=== PATIENT | female | born 1950 | race Caucasian/White ===

== ENCOUNTER → 2021-04-12 | Outpatient (CLI) | payer MEDICARE, OTHER, SELFPAY ==
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
--- NOTE | 2021-04-12 11:30 | BRBX_PTH ---
PATIENT: NIELS SANCHEZ LOC: [facility] U#:[id number] AGE/SX: 71/F ROOM: RE04/12/[address]: Dr. Feliz Funk MD : 1950 BED: DIS: 04/12/2021 SPEC #: [id number] RECD: 04/12/21 11:59 STATUS: OPAL REBharath #: [id number] ALEKSANDR: 04/12/21 11:[address]: Feliz Funk DEPT: SURGICAL PATHOLOGY RECD BY: Cassie Olivo ENTERED: 04/12/21 13:18 SP TYPE: BREAST BX OTHR DR: Dr. Gómez Velásquez MD Tissues: Left breast, NOS Procedures: Surgery Specimen Level IV HEADER OPERATION: Left breast stereotactic biopsy PRE-OP DIAGNOSIS: Left breast 11 o?clock speculated density TISSUE SUBMITTED: Left breast core tissue ISCHEMIC TIME: 1 minute FIXATION TIME: 8 hours MICROSCOPIC DIAGNOSIS Left breast at 11 o?clock, stereotactic core biopsy: Focal intraductal hyperplasia without atypia. Nonproliferative fibrocystic change and associated microcalcifications. Involutional change. No evidence of malignancy. AM:ines 04/13/2021 MICROSCOPIC DESCRIPTION Slides are reviewed. GROSS DESCRIPTION Received is one container labeled with the patient's name and not further designated. The specimen consists of multiple irregular and elongated fragments of yellow-white soft tissue that in aggregate measure 5.5 x 3 x 0.2 cm. The specimen is totally submitted in two cassettes. / AM:ines 04/12/21 TC:5 CPT: 64420
--- NOTE | 2021-04-12 11:47 | PCM.OPRPT ---
Problems Associated Problem List Diagnoses (1) Abnormal mammogram of left breast: Report of Operation Date of Procedure: 04/12/21 Pre-Operative Diagnosis: Abnormal left mammogram with vague distortion upper inner Post-Operative Diagnosis: Same Surgery/Procedure Performed:: Stereotactic needle core biopsy left breast Description of Surgical Findings:: Timeout and informed consent was obtained. 71-year-old female was taken to the stereotactic unit placed prone the table. The left breast was placed in a cc view. The area of spiculated distortion identified. Stereotactic images were obtained. Target on head control clerk was selected replacing image 2. Digital information was obtained on a single target site. The breast was prepped with Betadine. 1% lidocaine was used as a local anesthetic. A total of 10 cc was used. A small stab incision was created. An 8 gauge mammotome needle was advanced to prefire depth. Prefire films were obtained. Subsequently the device was fired. 12 cores were obtained circumferentially. A small marking clip was left at 12 o'clock position. On fast view demonstrated good positioning. She was released from the device. Pressure was held for hemostasis. Steri-Strips Telfa OpSite dressing applied. Ice pack given. She was given activity and wound care instructions. The specimens had been immediately placed in formalin for analysis. Feliz Funk M.D., F.A.C.S. Surgeon: Feliz Funk Type of Anesthesia: Local
== END | disposition home or self-care (01) ==
LOC: BIRAD 10:47
PROVIDERS: PCP Internal Medicine; Referring Provider Surgery; Visit Provider Surgery
DX: N62 Hypertrophy of breast (principal); F41.9 Anxiety disorder, unspecified; I10 Essential (primary) hypertension; M19.90 Unspecified osteoarthritis, unspecified site; K21.9 Gastro-esophageal reflux disease without esophagitis; R92.8 Other abnormal and inconclusive findings on diagnostic imaging of breast
CPT/HCPCS: 19081; 88305; J7050

== ENCOUNTER 2024-06-02 07:30 | Outpatient (RCR) | payer MEDICARE, OTHER, SELFPAY ==
--- NOTE | 2024-04-09 16:30 | HP.OTEVAL ---
Patient's Visit Information Visit Information Visit Information: NIELS SANCHEZ is a 74 year old F, referred to Occupational Therapy by ZEINAB Casas, with a diagnosis of OA cmc. Date of Evaluation: 04/09/24 Occupational Therapist: BETH Meza/Miroslava, CHT Subjective Subjective: This 74 year old female was seen for OT eval with dx of left CMC OA. pt states she had multiple cortisone shot and last few was not helpful. pt decided to have sx. pt is right handed. pt had sx on 2023. pt lives alone. ADLs Comments: pt use of one hand at this time with all ADLs and IADLs. Pain left hand: Current Pain Intensity: 2 Pain Intensity Range: 4 ROM Wrist: right 55/50 left 30/30 CMC: right 20 left NT MP: right 60 left 10 IP: right 50 left 15 Strength Web Press Operator Assistant: right 30# left NT Strength Comments: will test at later date Quick DASH-Disab of Arm,Shoulder& Hand Quick DASH Score: 59.0900 Goals Goal:100% adherence to protocol: Yes Comment: cmc arthroplasty guidelines Goal:Daily scar massage when approriate: Yes Goal:ROM equal to unaffected hand: Yes Goal:Web Press Operator Assistant/Pinch strength at least 75% of unaffected hand: Yes Goal:No pain with affected hand use: Yes Goal:Full use of affected hand in daily activities including work: Yes Goal:Decrease scar hypersensitivity: Yes Other Goal: orthosis use: pt will demo IND donning and doffing of orthosis by end of 1st session Rehabilitation General Assessment: pt arrives 3 weeks and 6 days s/p from a left CMC arthroplasty. Pt arrives in need of custom orthosis to provide support and protection while newly repaired structures are healing. PT demo need for skilled OT services 1-2 x week for 8 weeks. Today therapist shar. custom orthosis, ed. in wrist short arch wrist ROM, tendon glide and IP ROM- therapist ed. pt to avoid any thumb hyper-ext of MPJ. pt demo understanding. therapist ed. pt on orthosis precautions and agreed to return to clinic for adj. pt demo understanding and agree to POC. Rehabilitation Potential: Excellent Anticipated Interventions Anticipated Interventions: A/AAROM/PROM, Strengthening, Scar Care, Triggerpoint Release, Desensitization, Orthoses, Joint Protection/Energy Conservation, Ergonomic Education, Education re assistive Equipment, Education re Diagnosis and Home Program Visit Plan Frequency: 1-2x /Week Duration: 2 Months TEXT: Thank you for the opportunity to evaluate your patient. For Medicare and Medicare HMO plans, please review the plan of care and approve it. It will need to be FAXED BACK to us at [phone] for Medicare purposes. Please let me know if there are questions or concerns regarding this plan of care. Physician Signature: Date:
--- NOTE | 2024-05-19 07:44 | HP.OTREVAL ---
Re-Evaluation Intro: ZEINAB Casas, It has been my pleasure to treat NIELS SANCHEZ over the last 7 visits for OA cmc. Please see the progress note below for an update on the occupational therapy plan of care! Subjective Subjective: pt arrives 9 weeks 4 days out from surgery doing well feels a little sore Objective Objective/Function: pt is doing well complains of soreness in L thumb region and wrist region at times. L MP joint with tendency to hyperextend needing moderate cues and increased focus on proper positioning during interventions L hand thumb MP 30 L hand thumb IP 40 wrist 45/45 L hand construction grip 20# L hand lateral pinch 1# L hand tripod pinch 1# Plan Plan Frequency: 1-2x /Week Duration: 2 Months Plan: progress in ROM per progression of healing and spittle protocal Goals Goals Patient Goals: Regain Mobility, Regain Strength, Decrease Pain and Use Hand/Wrist/Arm Normally Again Goal:100% adherence to protocol: Yes Goal:Daily scar massage when approriate: Yes Goal:ROM equal to unaffected hand: Yes Goal:Construction Controller/Pinch strength at least 75% of unaffected hand: Yes Goal:No pain with affected hand use: Yes Goal:Full use of affected hand in daily activities including work: Yes Goal:Decrease scar hypersensitivity: Yes Other Goal: orthosis use: pt will demo IND donning and doffing of orthosis by end of 1st session Anticipated Interventions Anticipated Interventions Anticipated Interventions: A/AAROM/PROM, Strengthening, Scar Care, Triggerpoint Release, Desensitization, Orthoses, Joint Protection/Energy Conservation, Ergonomic Education, Education re assistive Equipment, Education re Diagnosis and Home Program Re-Evaluation Ending Re-evaluation ending: Please do not hesitate to contact me at [phone] by phone or if you have questions or concerns regarding this new plan of care! Sincerely, Annalee Bartlett
--- NOTE | 2024-07-08 11:45 | HP.OT.NRP ---
Patient Information Patient Information: NIELS SANCHEZ was seen in my office for initial evaluation on 04/09/24. The following Plan of Care was established for this patient: POC Established Initial Frequency: 1-2x /Week Initial Duration: 2 Months Plan: progress in ROM per progression of healing and spittle protocal Anticipated Interventions Anticipated Interventions: A/AAROM/PROM, Strengthening, Scar Care, Triggerpoint Release, Desensitization, Orthoses, Joint Protection/Energy Conservation, Ergonomic Education, Education re assistive Equipment, Education re Diagnosis and Home Program Last Seen Last Seen: This patient was last seen in our office 06/02/24. Pertinent comments regarding their Occupational therapy will appear below: This 74 year old female seen for dx of L hand cmc OA s/p arthroplasty. pt progressed throughout POC in ROM as well as decreased pain increased functional use. discharge from OT services at this time due to lapse in time since services with no visits scheduled. At this point I will be discontinuing this patient from occupational therapy. I would be happy to see this patient again in the future if found appropriate by the physician. Thank you! Annalee Bartlett
== END 2024-06-02 19:00 | disposition home or self-care (01) ==
LOC: OT 07:30
PROVIDERS: PCP Internal Medicine; Referring Provider Physician Assistant Surgical; Visit Provider Physician Assistant Surgical
DX: M18.12 Unilateral primary osteoarthritis of first carpometacarpal joint, left hand (principal); M19.032 Primary osteoarthritis, left wrist
CPT/HCPCS: 97110; 97140; 97166; 97530; 97760

== ENCOUNTER → 2025-02-12 | Outpatient (CLI) | payer MEDICARE, OTHER, SELFPAY ==
--- OUTSIDE RECORDS SUMMARY | 2025-02-12 21:58 | XMS RPT_ITS | CCD ---
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 Dari Velásquez MD Primary Care Provider Evy Becker Attending Provider [phone] Evy Becker Referring Provider DARI VELÁSQUEZ Primary Care Unavailable DARI VELÁSQUEZ MD Primary Care Unavailable DARI VELÁSQUEZ MD Consulting Unavailable DARI VELÁSQUEZ MD Attending Unavailable DARI VELÁSQUEZ MD Admitting Unavailable PROVIDER, UNKNOWN Consulting Unavailable PROVIDER, UNKNOWN Consulting Unavailable PROVIDER, UNKNOWN Consulting Unavailable RALPH BLAND DO Primary Care Unavailable RALPH BLAND DO Attending Unavailable RALPH BLAND DO Admitting Unavailable DARI VELÁSQUEZ MD Consulting Unavailable MAJOR MOLINA MD Referring Unavailable PROVIDER, UNKNOWN Consulting Unavailable PROVIDER, UNKNOWN Consulting Unavailable PROVIDER, UNKNOWN Consulting Unavailable DARI VELÁSQUEZ MD Consulting Unavailable DARI VELÁSQUEZ MD Attending Unavailable DARI VELÁSQUEZ MD Primary Care Unavailable DARI VELÁSQUEZ MD Admitting Unavailable PROVIDER, UNKNOWN Consulting Unavailable PROVIDER, UNKNOWN Consulting Unavailable PROVIDER, UNKNOWN Consulting Unavailable DARI VELÁSQUEZ MD Consulting Unavailable DARI VELÁSQUEZ MD Attending Unavailable DARI VELÁSQUEZ MD Admitting Unavailable DARI VELÁSQUEZ MD Primary Care Unavailable PROVIDER, UNKNOWN Consulting Unavailable PROVIDER, UNKNOWN Consulting Unavailable PROVIDER, UNKNOWN Consulting Unavailable RIMA GOULD MD Primary Care Unavailable RIMA GOULD MD Attending Unavailable RIMA GOULD MD Admitting Unavailable DARI VELÁSQUEZ MD Consulting Unavailable PROVIDER, UNKNOWN Consulting Unavailable PROVIDER, UNKNOWN Consulting Unavailable PROVIDER, UNKNOWN Consulting Unavailable DARI VELÁSQUEZ MD Consulting Unavailable DARI VELÁSQUEZ MD Attending Unavailable DARI VELÁSQUEZ MD Admitting Unavailable DARI VELÁSQUEZ MD Primary Care Unavailable PROVIDER, UNKNOWN Consulting Unavailable PROVIDER, UNKNOWN Consulting Unavailable PROVIDER, UNKNOWN Consulting Unavailable Allergies Allergy Classification Reported Allergen(s) Allergy Type Date of Onset Reaction(s) Facility (2 sources) quinapril Drug Allergy 04-10-2021 Laryngospasms [facility] (2 sources) quinapril; Translations: [QUINAPRIL HCL] Drug Allergy 07-11-2009 Intolerance [facility] (1 source) quinapril Drug Allergy 04-10-2021 [facility] Repository Medications Current Medications Medication Drug Class(es) Dates Sig (Normalized) Sig (Original) ALPRAZolam 0.25 mg oral tablet (3 sources) Benzodiazepine Start: 05-09-2016 take 0.125 mg by mouth once daily as needed Alprazolam Active 0.125 MG PO DAILY NEEDED May 09, 2016 12:06pm Start: 05-09-2016 take 0.125 mg by jaylon th once daily as needed for anxiety Alprazolam 0.25 MG tablet Active 0.125 mg PO DAILY NEEDED as needed for Anxiety May 09, 2016 1:00am Start: 03-12-2016 ALPRAZolam (XA NAX) 0.5 mg tablet 03/12/2016 Active amLODIPine 10 mg oral tablet (3 sources) Dihydropyridine Calcium Channel Lexx Start: 07-11-2009 take 1 tablet by mouth once daily Amlodipine 10 mg tablet Active 10 mg PO DAILY April 10, 2021 1:00am aspirin 81 mg delayed release oral tablet (1 source) Platelet Aggregation Inhibitor, Nonsteroidal Anti-inflammatory Drug Start: 07-11-2009 aspirin(ECOTRIN LOW STRENGTH 81 MG TAB) Take one(1) tablet daily. 0 07/11/2009 Active doxycycline hyclate 100 mg oral tablet (1 source) Tetracycline-class Drug Start: 05-22-2024 End: 05-29-2024 take 1 tablet by mouth twice daily doxycycline (VIBRA-TABS) 100 mg tablet Take 1 tablet by mouth two times a day for 7 days. 14 tablet 05/22/2024 05/29/2024 Active Estrogens, Conjugated (JAIL) / medroxyPROGESTERone (1 source) Progestin, Estrogen Start: 07-11-2009 estrogen,con/m- progest acet(PREMPRO 0.625 MG-2.5 MG TAB) Take one(1) tablet daily. 0 07/11/2009 Active hydroCHLOROthiazide 25 mg / triamterene 37.5 mg oral capsule (3 sources) Potassium-sparing Diuretic, Thiazide Diuretic Start: 04-10-2021 take 1 capsule by mouth once daily Triamterene-Hyd rochlorothiazid Active 1 CAP PO DAILY April 10, 2021 1:54pm Start: 07-11-2009 Triamterene-Hy drochlorothiazid 37.5-25 mg capsule Active 1 NMA PO DAILY April 10, 2021 1:00am pantoprazole 40 mg delayed release oral tablet (3 sources) Proton Pump Inhibitor Start: 07-11-2009 take 1 tablet by mouth once daily Pantoprazole 40 mg tablet,delayed release (DR/EC) Active 40 mg PO DAILY April 10, 2021 1:00am pravastatin sodium 20 mg oral tablet (4 sources) HMG-CoA Reductase Inhibitor Start: 03-24-2024 take 1 tablet by mouth once pravastatin (PRAVACHOL) 20 mg tablet Take 1 tablet by mouth every afternoon. 03/24/2024 Active Start: 05-09-2016 take 20 mg by mouth once daily Pravastatin Active 20 MG PO DAILY May 09, 2016 12:01pm Start: 05-09-2016 Pravastatin 40 MG tablet Active 20 mg PO DAILY May 09, 2016 1:00am Start: 02-16-2016 pravastatin (P RAVACHOL) 40 mg tablet 02/16/2016 Active spironolactone 25 mg oral tablet (1 source) Aldosterone Antagonist Start: 03-24-2024 take 1 tablet by mouth once spironolactone (ALDACTONE) 25 mg tablet Take 1 tablet by mouth every afternoon. 03/24/2024 Active Completed/Discontinued Medications Medication Drug Class(es) Dates Sig (Normalized) Sig (Original) [id number] actuat albuterol 0.09 mg/actuat metered dose inhaler (2 sources) beta2-Adrenergic Agonist Start: 05-09-2016 End: 04-10-2021 take 1 puff(s) by inhalation every four hours as needed Albuterol Sulfate (Ventolin Hfa) 1 INHALER inhaler Discontinued 1 - 2 PUFF INHALATION EVERY 4 HOURS NEEDED May 09, 2016 12:38pm April 10, 2021 1:55pm Start: 05-09-2016 End: 04-10-2021 Albuterol Sulfate (Ventolin Hfa) 1 INHALER inhaler Discontinued 1 - 2 NMA INHALATION EVERY 4 HOURS NEEDED as needed for Wheezing May 09, 2016 1:00am April 10, 2021 1:55pm 12 hr guaiFENesin 1200 mg / pseudoephedrine hydrochloride 120 mg extended release oral tablet (2 sources) alpha-Adrenergic Agonist Start: 05-09-2016 End: 04-10-2021 Pseudoephedrine-Guaifenesin (Mucinex D Er 1,200-120 Mg Tab) 1 EACH tablet extended release 12 hr Discontinued 1 EACH PO TWICE A DAY May 09, 2016 12:38pm April 10, 2021 1:55pm hydroCHLOROthiazide 25 mg oral tablet (2 sources) Thiazide Diuretic Start: 05-09-2016 End: 04-10-2021 take 25 mg by mouth once daily Hydrochlorothiazide Discontinued 25 MG PO DAILY May 09, 2016 12:01pm April 10, 2021 1:45pm lisinopril 5 mg oral tablet (2 sources) Angiotensin Converting Enzyme Inhibitor Start: 05-09-2016 End: 04-10-2021 Lisinopril (Prinivil) 5 MG tablet Discontinued PO DAILY May 09, 2016 12:01pm April 10, 2021 1:54pm losartan potassium 25 mg oral tablet (3 sources) Angiotensin 2 Receptor Lexx Start: 05-09-2016 End: 04-10-2021 take 25 mg by mouth once daily Losartan Discontinued 25 MG PO DAILY May 09, 2016 12:01pm April 10, 2021 1:55pm Start: 07-11-2009 losartan potas sium(COZAAR 50 MG TAB) Take one(1) tablet daily. 0 07/11/2009 Active Problems Active Problems Problem Classification Problem Date Documented Da te Episodic/Chronic Acute bronchitis (2 sources) Viral bronchitis; Translations: [Acute bronchitis due to other specified organisms] 05-10-2016 Episodic Chronic kidney disease (1 source) Chronic kidney disease; Translations: [Chronic kidney disease, stage 3a] Onset: 06-15-2024 Disorders of lipid metabolism (4 sources) Hyperlipidemia, unspecified; Translations: [Hyperlipidemia, unspecified] Onset: 06-15-2024 Chronic Essential hypertension (3 sources) Essential (primary) hypertension; Translations: [Essential (primary) hypertension] Onset: 06-03-2024 Chronic Immunizations and screening for infectious disease (1 source) Contact with and (suspected) exposure to other communicable diseases; Translations: [Contact with or exposure to other communicable diseases] 05-22-2024 Episodic Mood disorders (1 source) Major depressive disorder, single episode, unspecified; Translations: [Major depressive disorder, single episode, unspecified] Onset: 01-06-2025 Chronic Other lower respiratory disease (1 source) Cough; Translations: [Acute cough] 05-22-2024 Episodic Other screening for suspected conditions (not mental disorders or infectious disease) (6 sources) Mammography abnormal; Translations: [Other abnormal and inconclusive findings on diagnostic imaging of breast] Onset: 02-20-2023 Episodic Past or Other Problems Problem Classification Problem Date Documented Da te Episodic/Chronic Abdominal pain (1 source) Epigastric pain; Translations: [Epigastric pain] Onset: 07-11-2009 07-11-2009 Episodic Diabetes mellitus without complication (1 source) Hyperglycemia, unspecified; Translations: [Hyperglycemia, unspecified] Onset: 06-03-2024 Episodic Gastritis and duodenitis (1 source) Acute gastritis; Translations: [Acute gastritis without bleeding] Onset: 07-26-2009 07-26-2009 Episodic Results Test Name Value Interpretation Reference Range Facil ity CBC (NO DIFF)on 01-06-2025 CBC panel Auto (Bld) Normal [facility] Comment on above: Result Comment: CBC( WITHOUT DIFFERENTIAL) Performed By: #### 2 [id number] #### [facility],[address] [place] [address] Erythrocyte distribution width (RBC) [Ratio] 14.1 % Normal 12.0 - 15.6 [facility] Comment on above: Performed By: #### 2 27117 #### [facility],[address] [place] [address] Hematocrit (Bld) [Volume fraction] 37.8 % Normal 34.0 - 46.0 [facility] Comment on above: Performed By: #### 2 46298 #### [facility],[address] [place] [address] Hemoglobin (Bld) [Mass/Vol] 13.0 g/dL Normal 12.0 - 16.0 [facility] Comment on above: Performed By: #### 2 09781 #### [facility],[address] [place] [address] MCH (RBC) [Entitic mass] 28 pg Normal 27 - 33 [facility] Comment on above: Performed By: #### 2 24243 #### [facility],[address] [place] [address] MCHC 34 X10 3 Normal 32 - 36 [facility] Comment on above: Performed By: #### 2 01664 #### [facility],[address] [place] [address] MCV (RBC) [Entitic vol] 80 fL Normal 80 - 99 [facility] Comment on above: Performed By: #### 2 33183 #### [facility],[address] [place] [address] PLATELET 298 x10EE3/UL Normal 150 - 450 [facility] Comment on above: Performed By: #### 2 08842 #### [facility],[address] [place] [address] Platelet mean volume (Bld) [Entitic vol] 8.2 fL Normal 6.6 - 10.5 [facility] Comment on above: Performed By: #### 2 97931 #### [place] [address] RBC 4.72 x 10EE6/UL Normal 4.10 - 5.30 [facility] Comment on above: Performed By: #### 2 88417 #### [facility],[address],[place] [address] WBC 6.3 x 10EE3/UL Normal 4.5 - 10.8 [facility] Comment on above: Performed By: #### 2 42493 #### [facility],[address] [place] [address] CMP with eGFRon 01-06-2025 AGE 74 years Normal [facility] Comment on above: Performed By: #### 2 79105 #### [facility],[address] [place] [address] Albumin [Mass/Vol] 3.8 g/dL Normal 3.4 - 5.0 [facility] Comment on above: Performed By: #### 2 37256 #### [facility],[address] [place] [address] Albumin/Globulin [Mass ratio] 1.2 {ratio} Normal 0.9 - 1.6 [facility] Comment on above: Performed By: #### 2 56852 #### [facility],[address] [place] [address] ALK PHOS 69 U/L Normal 46 - 116 [facility] Comment on above: Performed By: #### 2 39211 #### [facility],[address] [place] [address]140 ALT [Catalytic activity/Vol] 16 U/L Normal 16 - 63 [facility] Comment on above: Performed By: #### 2 95044 #### [facility],[address] [place] [address] Anion gap [Moles/Vol] 11 mmol/L Normal 10 - 20 [facility] Comment on above: Performed By: #### 2 09102 #### [facility],[address] [place] [address]95 AST [Catalytic activity/Vol] 14 U/L Normal 13 - 39 [facility] Comment on above: Performed By: #### 2 86040 #### [facility],[address] [place] [address]489 B/C RATIO 18 ratio Normal 0 - 30 [facility] Comment on above: Performed By: #### 2 01281 #### [facility],[address] [place], [place] [id number] Bilirubin [Mass/Vol] 0.5 mg/dL Normal 0.2 - 1.0 [facility] Comment on above: Performed By: #### 2 62809 #### [facility],[address] [place] [address] Calcium [Mass/Vol] 9.2 mg/dL Normal 8.5 - 10.1 [facility] Comment on above: Performed By: #### 2 03633 #### [facility],[address] [place] [address] Chloride [Moles/Vol] 105 mmol/L Normal 98 - 107 [facility] Comment on above: Performed By: #### 2 57525 #### [facility],[address] [place] [address] CMP with eGFR Normal [facility] Comment on above: Result Comment: COMP REHENSIVE METABOLIC PANEL Performed By: #### 2 84499 #### [facility],[address] [place] [address] CO2 [Moles/Vol] 28.8 mmol/L Normal 21.0 - 32.0 [facility] Comment on above: Performed By: #### 2 48259 #### [facility],[address] [place] [address] Creatinine [Mass/Vol] 1.02 mg/dL Normal 0.55 - 1.02 [facility] Comment on above: Performed By: #### 2 58402 #### [facility],[address] [place] [address] eGFR 53 ML/MINUTE Low 60 - 999 [facility] Comment on above: Performed By: #### 2 95864 #### [facility],[address] [place], [place] [address] GFR/1.73 sq M.predicted among non-blacks MDRD (S/P/Bld) [Vol rate/Area] mL/min/{1.73_m2} Normal 60 - 999 [facility] Comment on above: Result Comment: ACCO RDING TO THE NATIONAL KIDNEY DISEASE EDUCATION PROGRAM(NKDE), A NORMAL eGFR IS A VALUE GREATER THAN OR EQUAL TO 60 ML/MIN/1.73 SQ METERS. CHRONIC KIDNEY DISEASE: <60mL/MIN/1.73 SQ METERS KIDNEY FAILURE: <15mL/MIN/1.73 SQ METERS THIS TEST SHOULD ONLY BE USED FOR PATIENTS 18 YEARS OF AGE AND OLDER. Performed By: #### 2 90366 #### [address] [address] Globulin (S) [Mass/Vol] 3.1 g/dL Normal 1.5 - 3.8 [facility] Comment on above: Performed By: #### 2 04072 #### [address] [address] Glucose [Mass/Vol] 89 mg/dL Normal 74 - 106 [facility] Comment on above: Performed By: #### 2 78389 #### [address] [address] Potassium [Moles/Vol] 3.8 mmol/L Normal 3.5 - 5.1 [facility] Comment on above: Performed By: #### 2 00630 #### [address] [address] Protein [Mass/Vol] 6.9 g/dL Normal 6.4 - 8.2 [facility] Comment on above: Performed By: #### 2 29838 #### [address] [address] Sodium [Moles/Vol] 141 mmol/L Normal 136 - 145 [facility] Comment on above: Performed By: #### 2 29747 #### [address] [address] Urea nitrogen [Mass/Vol] 18 mg/dL Normal 7 - 18 [facility] Comment on above: Performed By: #### 2 22054 #### [facility],[address] [place] [address] LIPID PROFILEon 01-06-2025 Cholesterol [Mass/Vol] 225 mg/dL Normal 0 - 240 [facility] Comment on above: Performed By: #### 2 08316 #### [facility],[address] [place] [address] Cholesterol in HDL [Mass/Vol] 46 mg/dL Normal 40 - 60 [facility] Comment on above: Performed By: #### 2 63041 #### [facility],[address] [place] [address] Cholesterol in LDL [Mass/Vol] 134 mg/dL High 0 - 129 [facility] Comment on above: Performed By: #### 2 76431 #### [facility],[address] [place], [place] [address] Cholesterol.total/ Cholesterol in HDL [Mass ratio] 4.9 {ratio} Normal 0.0 - 5.0 [facility] Comment on above: Performed By: #### 2 55747 #### [facility],[address] [place] [address] Lipid 1996 panel Normal [facility] Comment on above: Result Comment: LIPI D PROFILE Performed By: #### 2 42133 #### [facility],[address] [place] [address] Triglyceride [Mass/Vol] 227 mg/dL High 0 - 150 [facility] Comment on above: Performed By: #### 2 24743 #### [facility],[address] [place] [address] TSHon 01-06-2025 TSH Qn 1.94 m[IU]/L Normal 0.35 - 3.74 [facility] Comment on above: Performed By: #### 2 20664 #### [facility],[address] [place] [address]26 25-HYDROXY D2+D3 [CCL]on 25-Hydroxy D Total 68.6 ng/mL Normal 30.0-100.0 [facility] Comment on above: Result Comment: Defi cient: <20.1 ng/mL Insufficient: 20.1 - 29.9 ng/mL Sufficient: 30.0 - 100.0 ng/mL Toxic: >150.0 ng/mL Reference: [place]wat STOUT, N Engl J Med (2007)[id number] This test was developed and its performance characteristics determined by the [facility] [place] at the [facility]. The U.S. Food and Drug Administration has not approved or cleared this test, however, FDA clearance or approval is not currently [place] [address] Abraham Amanda III, M.D. [id number] Performed By: #### 2 25014 #### [facility],[address] [place], [place] [address] 25-Hydroxy D2 <5.0 Normal [facility] Comment on above: Performed By: #### 2 23423 #### [facility],[address] [place] [address]676 25-Hydroxy D3 68.6 ng/mL Normal [facility] Comment on above: Performed By: #### 2 59981 #### [address] [address] 25-HYDROXY D2+D3on 25-hydroxyvitamin D3 [Mass/Vol] 68.6 ng/mL Normal 30.0-100.0 [facility] Comment on above: Order Comment: Speci men Type: BLOOD SPECIMEN Ordering Facility: [facility] Address: [address] [place] [address] Result Comment: Defi cient: <20.1 ng/mL Insufficient: 20.1 - 29.9 ng/mL Sufficient: 30.0 - 100.0 ng/mL Toxic: >150.0 ng/mL Reference: [place] STOUT, N Engl J Med (2007)[id number] This test was developed and its performance characteristics determined by the [facility] [place] at the [facility]. The U.S. Food and Drug Administration has not approved or cleared this test, however, FDA clearance or approval is not currently required for clinical use. Performed By: #### D 2D3 #### [facility] CLIA [id number] [address] [place] Vitamin D2 [Mass/Vol] <5.0 Normal [facility] Comment on above: Order Comment: Speci [facility] Type: BLOOD SPECIMEN Ordering Facility: [facility] Address: [address] [place] [address] Performed By: #### D 2D3 #### [facility] CLIA [id number] [address] [place] [address] [place] Vitamin D3 [Mass/Vol] 68.6 ng/mL Normal [facility] Comment on above: Order Comment: Speci jasmine Type: BLOOD SPECIMEN Ordering Facility: [facility] Address: [address] [place], [place] [id number] Performed By: #### D 2D3 #### [facility] CLIA [id number] [address] [place], [place] [id number] [place] HEPATIC FUNCTION PANELon Albumin [Mass/Vol] 3.8 g/dL Normal 3.4 - 5.0 [facility] Comment on above: Performed By: #### 2 44561 #### [facility],[address] [place] [address] [place] [address] ALK PHOS 68 U/L Normal 46 - 116 [facility] Comment on above: Performed By: #### 2 65033 #### [facility],[address] [place] [address] [place] [address] ALT [Catalytic activity/Vol] 14 U/L Low 16 - 63 [facility] Comment on above: Performed By: #### 2 51419 #### [facility],[address] [place], [place] [address] AST [Catalytic activity/Vol] 14 U/L Normal 13 - 39 [facility] Comment on above: Performed By: #### 2 23306 #### [facility],[address] [place] [address] Bilirubin [Mass/Vol] 0.4 mg/dL Normal 0.2 - 1.0 [facility] Comment on above: Performed By: #### 2 43619 #### [facility],[address] [place], [place] [address] Bilirubin.direct [Mass/Vol] 0.1 mg/dL Normal 0.0 - 0.2 [facility] Comment on above: Performed By: #### 2 20414 #### [facility],[address] [place], [place] [address] Hepatic function 2000 panel Normal [facility] Comment on above: Result Comment: HEPA TIC FUNCTION PROFILE Performed By: #### 2 49546 #### [facility],[address] [place], [place] [address] Protein [Mass/Vol] 7.4 g/dL Normal 6.4 - 8.2 [facility] Comment on above: Performed By: #### 2 69118 #### [facility],[address] [place], [place] [address] LIPID PROFILEon 09-03-2024 Cholesterol [Mass/Vol] 217 mg/dL Normal 0 - 240 [facility] Comment on above: Performed By: #### 2 54464 #### [facility],[address] [place] [address] Cholesterol in HDL [Mass/Vol] 50 mg/dL Normal 40 - 60 [facility] Comment on above: Performed By: #### 2 47590 #### [facility],[address] [place] [address] Cholesterol in LDL [Mass/Vol] 134 mg/dL High 0 - 129 [facility] Comment on above: Performed By: #### 2 39240 #### [facility],[address] [place] [address] Cholesterol.total/ Cholesterol in HDL [Mass ratio] 4.3 {ratio} Normal 0.0 - 5.0 [facility] Comment on above: Performed By: #### 2 90357 #### [facility],[address] [place] [address] Lipid 1996 panel Normal [facility] Comment on above: Result Comment: LIPI D PROFILE Performed By: #### 2 64182 #### [facility],[address] [place] [address] Triglyceride [Mass/Vol] 163 mg/dL High 0 - 150 [facility] Comment on above: Performed By: #### 2 21392 #### [facility],[address] [place] [address] 3D MAMM BILAT SCREENon 07-28 3D MAMM BILAT SCREEN [place] [address] Patient: HOLLY SANCHEZ Phone#: : [phone] Age: 74 Gender: F Pt. Type: Out Account: [id number] Location: Ordering: [facility] Exam Date: 07/28/2024/10:06 Family Phys: Charge Code: [id number] Physician: Conway Order #: [id number] Dose#: PROCEDURE: BILATERAL SCREENING BREAST TOMOSYNTHESIS MAMMOGRAM WITH CAD COMPARISON: [facility], 3D LT SPOT VIEWS, 04/05/2021, 9:07. [facility], 3D BILAT SCREEN, 08/07/2022, 11:12. INDICATIONS: Screening. BREAST COMPOSITION: Heterogeneously dense, which may obscure small masses. FINDINGS: DIAGNOSTIC CATEGORY 1--NEGATIVE NO CHANGE FROM COMPARISON ASSESSMENT. RIGHT BREAST: No significant suspicious finding. No significant change has occurred. LEFT BREAST: No significant suspicious finding. Surgical marker is present the site of prior biopsy. Scattered calcifications are present. RECOMMENDATIONS: ROUTINE MAMMOGRAM AND CLINICAL EVALUATION IN 12 MONTHS. PLEASE NOTE: A NORMAL MAMMOGRAM DOES NOT EXCLUDE THE POSSIBILITY OF BREAST CANCER. A CLINICALLY SUSPICIOUS PALPABLE LUMP SHOULD BE BIOPSIED. THIS FACILITY UTILIZES A REMINDER SYSTEM TO ENSURE THAT ALL PATIENTS RECEIVE REMINDER LETTERS FOR APPOINTMENTS. THIS INCLUDES REMINDERS FOR ROUTINE MAMMOGRAMS, DIAGNOSITC MAMMOGRAMS, OR OTHER BREAST IMAGING INTERVENTIONS WHEN APPROPRIATE. THIS PATIENT WILL BE PLACED IN THE APPROPRIATE REMINDER SYSTEM. Dictated by: Rosalva Burnett MD on 07/28/2024 at 11:32 Approved by: Rosalva Burnett MD on 07/28/2024 at 11:37 Normal [facility] BONE DENSITY STUDYon 025 Bone density scan [place] [address] Patient: HOLLY SANCHEZ Phone#: : 1950 Age: 74 Gender: F Pt. Type: Out Account: [id number] Location: Ordering: DARI VELÁSQUEZ Exam Date: 07/28/2024/10:40 Family Phys: Charge Code: [id number] Physician: Conway Order #: [id number] Dose#: PROCEDURE: BONE DENSITY STUDY TECHNIQUE: Lumbar vertebral and proximal femoral dual-energy X-ray absorptiometry (DXA) was performed on a central [employer] device. COMPARISON: [facility], BONE DENSITY STUDY, 04/06/2022, 7:41. SPINE ANALYSIS RESULTS: Average lumbar bone mineral density (BMD) (g/cm2): 0.915 Lumbar T-score (standard deviation relative to young adult mean BMD): -2.2 Lumbar Z-score (standard deviation relative to age matched control group): -0.1 Change since prior spine examination: Bone loss greater than expected for physiologic change. Consider further clinical evaluation. SPINE CLASSIFICATION: Osteopenia (T-score -1.0 to -2.5). HIP ANALYSIS RESULTS: Left femoral bone mineral density (BMD) (g/cm2): 0. 795 Right femoral bone mineral density (BMD) (g/cm2): 0.819 Femur T-score (standard deviation relative to young adult mean BMD): -1.6 Femur Z-score (standard deviation relative to age matched control group): 0.4 Change since prior hip examination: Bone loss greater than expected for physiologic change. Consider further clinical evaluation. HIP CLASSIFICATION (World Health Organization): Osteopenia (T-score -1.0 to -2.5). Note: The 2007 International Society for Clinical Densitometry (ISCD) Official Positions state that osteoporosis in emily-menopausal and post-menopausal women and in men age 50 and older may be diagnosed if the T-score of the lumbar spine, total hip, or femoral neck is -2.5 or less. Hip BMD is reported from the femoral neck or total proximal femur whichever is lowest. In pre-menopausal women and in men younger than age 50, T-scores may be used but Z-scores are preferred. In this patient group, a Z-score of -2.0 or lower is defined as "below the expected range for age." FRAX is a computer-based algorithm which uses easily obtained clinical risk factors combined with femoral neck BMD or T-score to estimate an individual 10-year fracture probability. FRAX with BMD predicts fracture risk better than clinical risk factors or BMD alone. It is not appropriate to use FRAX to monitor treatment response. Continued Report - Page 2 of 2 Patient: HOLLY SANCHEZ Phone#: : 1950 Age: 74 Gender: F Pt. Type: Out Account: [id number] Location: Ordering: [facility] Exam Date: 07/28/2024/10:40 Family Phys: Charge Code: [id number] Physician: Conway Order #: [id number] Dose#: ADDITIONAL FINDINGS: No significant additional findings. Ten year probability of major osteoporotic fracture 20.8%. Ten year probability of hip fracture 5.5%. Dictated by: Rosalva Burnett MD on 07/28/2024 at 14:09 Approved by: Rosalva Burnett MD on 07/28/2024 at 14:11 [facility] OT D/C of Non Returning Pton 07-08-2024 OT D/C of Non Returning Pt [facility] Occupational Therapy Health[address] [place] [address] / REHABILITATION SERVICES DISCHARGE SUMMARY MR#: [id number] Acct: [id number] Name: HOLLY SANCHEZ Rep #: [id number] : 1950 74 From: Annalee Bartlett Referring Dr.: ZEINAB Casas Status: REG RCR Eval Date: Discharge Date: Patient Information Patient Information: HOLLY SANCHEZ was seen in my office for initial evaluation on 04/09/24. The following Plan of Care was established for this patient: POC Established Initial Frequency: 1-2x /Week Initial Duration: 2 Months Plan: progress in ROM per progression of healing and spittle protocal Anticipated Interventions Anticipated Interventions: A/AAROM/PROM, Strengthening, Scar Care, Triggerpoint Release, Desensitization, Orthoses, Joint Protection/Energy Conservation, Ergonomic Education, Education re assistive Equipment, Education re Diagnosis and Home Program Last Seen Last Seen: This patient was last seen in our office 06/02/24. Pertinent comments regarding their Occupational therapy will appear below: This 74 year old female seen for dx of L hand cmc OA s/p arthroplasty. pt progressed throughout POC in ROM as well as decreased pain increased functional use. discharge from OT services at this time due to lapse in time since services with no visits scheduled. At this point I will be discontinuing this patient from occupational therapy. I would be happy to see this patient again in the future if found appropriate by the physician. Thank you! Annalee Bartlett 07/08/24 1145 CC: Dr. Dari Velásquez MD; ZEINAB Casas CK Signed Normal [facility] LIPID PROFILEon 06-15-2024 Cholesterol [Mass/Vol] 248 mg/dL High 0 - 240 [facility] Comment on above: Performed By: #### 2 86454 #### [facility],[address] [place] [address] 88405 Cholesterol in HDL [Mass/Vol] 66 mg/dL High 40 - 60 [facility] Comment on above: Performed By: #### 2 20765 #### [facility],[address] [place] [address] 22227 Cholesterol in LDL [Mass/Vol] 141 mg/dL High 0 - 129 [facility] Comment on above: Performed By: #### 2 30038 #### [facility],[address] [place] [address] 63722 Cholesterol.total/ Cholesterol in HDL [Mass ratio] 3.8 {ratio} Normal 0.0 - 5.0 [facility] Comment on above: Performed By: #### 2 61799 #### [facility],[address] [place] [address] 71369 Lipid 1996 panel Normal [facility] Comment on above: Result Comment: LIPI D PROFILE Performed By: #### 2 52080 #### [facility],[address] [place] [address] 65869 Triglyceride [Mass/Vol] 207 mg/dL High 0 - 150 [facility] Comment on above: Performed By: #### 2 21253 #### [facility],[address] [place] [address] 25262 TSHon 06-15-2024 TSH Qn 0.69 m[IU]/L Normal 0.35 - 3.74 [facility] Comment on above: Performed By: #### 2 82061 #### [facility],[address] [place] [address] 89027 VITAMIN D, 25 HYDROXYon 05-24 VitD 94.30 ng/mL Normal 30.00 - 100 [facility] Comment on above: Result Comment: 25-O HD3 indicates both endogenous production and supplementation. 25-OHD2 is an indicator of exogenous sources, such as diet or supplementation. Therapy is based on measurement of Total 25-OHD, with levels <20 ng/mL indicative of Vitamin D deficiency, while levels between 20 ng/mL and 30 ng/mL suggest insufficiency. Optimal levels are >=30ng/mL. Vitamin D, 25-OH D3 Not Established Vitamin D, 25-OH D2 Not Established Performed By: #### 2 45799 #### [facility],[address] [place] [address] 17265 CBC + DIFFon 06-03-2024 Baso # 0.02 x10EE3/UL Normal 0.00 - 0.10 [facility] Comment on above: Performed By: #### 2 32001 #### [facility],[address] [place] [address] Basophils/100 WBC (Bld) 0.3 % Normal 0.0 - 2.0 [facility] Comment on above: Performed By: #### 2 10561 #### [facility],[address] [place] [address] CBC + DIFF Normal [facility] Comment on above: Result Comment: CBC- COMPLETE BLOOD COUNT Performed By: #### 2 72926 #### [place] [address] EO # 0.22 x10EE3/UL Normal 0.00 - 0.50 [facility] Comment on above: Performed By: #### 2 10746 #### [place] [address] Eosinophils/100 WBC (Bld) 3.7 % Normal 0.0 - 7.0 [facility] Comment on above: Performed By: #### 2 62458 #### [place] [address] Erythrocyte distribution width (RBC) [Ratio] 14.4 % Normal 12.0 - 15.6 [facility] Comment on above: Performed By: #### 2 85462 #### [facility],[address] [place] [address] Hematocrit (Bld) [Volume fraction] 38.4 % Normal 34.0 - 46.0 [facility] Comment on above: Performed By: #### 2 60845 #### [place] [address] Hemoglobin (Bld) [Mass/Vol] 12.8 g/dL Normal 12.0 - 16.0 [facility] Comment on above: Performed By: #### 2 72240 #### [facility] [place] [address] Lymph # 2.36 x10EE3/UL Normal 0.80 - 2.80 [facility] Comment on above: Performed By: #### 2 79922 #### [facility],[address] [place] [address] Lymphocytes/100 WBC (Bld) 40.0 % Normal 20.0 - 45.0 [facility] Comment on above: Performed By: #### 2 74866 #### [facility],[address] [place] [address] MANUAL DIFF N/A Normal [facility] Comment on above: Performed By: #### 2 42719 #### [facility],[address] [place] [address] MCH (RBC) [Entitic mass] 27 pg Normal 27 - 33 [facility] Comment on above: Performed By: #### 2 63907 #### [facility],[address] [place] [address] MCHC 33 X10 3 Normal 32 - 36 [facility] Comment on above: Performed By: #### 2 82340 #### [facility],[address] [place], [place] [address] MCV (RBC) [Entitic vol] 80 fL Normal 80 - 99 [facility] Comment on above: Performed By: #### 2 30990 #### [facility],[address] [place] [address] [place] # 0.58 x10EE3/UL Normal 0.20 - 1.00 [facility] Comment on above: Performed By: #### 2 21264 #### [facility],[address] [place], [place] [address] MONOS % 9.9 % Normal 0.0 - 10.0 [facility] Comment on above: Performed By: #### 2 64340 #### [facility],[address] [place], [place] [address] Morphology Viktor (Bld) [Interp] N/A Normal [facility] Comment on above: Performed By: #### 2 95069 #### [facility],[address] [place], [place] [address] Neut # 2.72 x10EE3/UL Normal 1.50 - 7.10 [facility] Comment on above: Performed By: #### 2 31733 #### [facility],[address] [place] [address] Neutrophils/100 WBC (Bld) 46.1 % Normal 46.0 - 76.0 [facility] Comment on above: Performed By: #### 2 08253 #### [facility],[address] [place] [address] PLATELET 313 x10EE3/UL Normal 150 - 450 [facility] Comment on above: Performed By: #### 2 15187 #### [facility],[address] [place] [address] Platelet mean volume (Bld) [Entitic vol] 7.9 fL Normal 6.6 - 10.5 [facility] Comment on above: Result Comment: AUTO MATED DIFFERENTIAL Performed By: #### 2 52320 #### [facility],[address] [place] [address] 20696 RBC 4.80 x 10EE6/UL Normal 4.10 - 5.30 [facility] Comment on above: Performed By: #### 2 29461 #### [facility],[address] [place] [address] 96389 WBC 5.9 x 10EE3/UL Normal 4.5 - 10.8 [facility] Comment on above: Performed By: #### 2 72507 #### [facility],[address] [place] [address] 78283 CMP with eGFRon 06-03-2024 AGE 74 years Normal [facility] Comment on above: Performed By: #### 2 47188 #### [facility],[address] [place], [place] [address] Albumin [Mass/Vol] 3.9 g/dL Normal 3.4 - 5.0 [facility] Comment on above: Performed By: #### 2 58860 #### [facility],[address] [place], [place] [address] Albumin/Globulin [Mass ratio] 1.2 {ratio} Normal 0.9 - 1.6 [facility] Comment on above: Performed By: #### 2 50805 #### [facility],[address] [place] [address] 80744 ALK PHOS 82 U/L Normal 46 - 116 [facility] Comment on above: Performed By: #### 2 86938 #### [facility],[address] [place], [place] [address] ALT [Catalytic activity/Vol] 20 U/L Normal 16 - 63 [facility] Comment on above: Performed By: #### 2 83292 #### [facility],[address] [place] [address] 71441 Anion gap [Moles/Vol] 17 mmol/L Normal 10 - 20 [facility] Comment on above: Performed By: #### 2 12097 #### [facility],[address] [place] [address] 54738 AST [Catalytic activity/Vol] 18 U/L Normal 13 - 39 [facility] Comment on above: Performed By: #### 2 58002 #### [facility],[address] [place] [address] 73099 B/C RATIO 15 ratio Normal 0 - 30 [facility] Comment on above: Performed By: #### 2 58424 #### [facility],[address] [place] [address] 74292 Bilirubin [Mass/Vol] 0.3 mg/dL Normal 0.2 - 1.0 [facility] Comment on above: Performed By: #### 2 17915 #### [facility],[address] [place] [address] 06873 Calcium [Mass/Vol] 9.4 mg/dL Normal 8.5 - 10.1 [facility] Comment on above: Performed By: #### 2 44668 #### [facility],[address] [place], [place] [address] Chloride [Moles/Vol] 106 mmol/L Normal 98 - 107 [facility] Comment on above: Performed By: #### 2 52016 #### [facility],[address] [place], [place] [address] CMP with eGFR Normal [facility] Comment on above: Result Comment: COMP REHENSIVE METABOLIC PANEL Performed By: #### 2 15082 #### [facility],[address] [place], [place] [address] CO2 [Moles/Vol] 23.4 mmol/L Normal 21.0 - 32.0 [facility] Comment on above: Performed By: #### 2 10399 #### [facility],[address] [place], [place] [address] Creatinine [Mass/Vol] 0.93 mg/dL Normal 0.55 - 1.02 [facility] Comment on above: Performed By: #### 2 56001 #### [facility],[address] [place] [address] 00942 eGFR 59 ML/MINUTE Low 60 - 999 [facility] Comment on above: Performed By: #### 2 82957 #### [facility],[address] [place] [address] 71676 GFR/1.73 sq M.predicted among non-blacks MDRD (S/P/Bld) [Vol rate/Area] mL/min/{1.73_m2} Normal 60 - 999 [facility] Comment on above: Result Comment: ACCO RDING TO THE NATIONAL KIDNEY DISEASE EDUCATION PROGRAM(NKDE), A NORMAL eGFR IS A VALUE GREATER THAN OR EQUAL TO 60 ML/MIN/1.73 SQ METERS. CHRONIC KIDNEY DISEASE: <60mL/MIN/1.73 SQ METERS KIDNEY FAILURE: <15mL/MIN/1.73 SQ METERS THIS TEST SHOULD ONLY BE USED FOR PATIENTS 18 YEARS OF AGE AND OLDER. Performed By: #### 2 92276 #### [facility],[address] [place] [address] 21422 Globulin (S) [Mass/Vol] 3.3 g/dL Normal 1.5 - 3.8 [facility] Comment on above: Performed By: #### 2 44847 #### [facility],[address] [place], [place] [address] Glucose [Mass/Vol] 81 mg/dL Normal 74 - 106 [facility] Comment on above: Performed By: #### 2 20223 #### [facility],[address] [place] [address] 64109 Potassium [Moles/Vol] 3.7 mmol/L Normal 3.5 - 5.1 [facility] Comment on above: Performed By: #### 2 84893 #### [facility],[address] [place], [place] [address] Protein [Mass/Vol] 7.2 g/dL Normal 6.4 - 8.2 [facility] Comment on above: Performed By: #### 2 72623 #### [facility],[address] [place], [place] [address] Sodium [Moles/Vol] 143 mmol/L Normal 136 - 145 [facility] Comment on above: Performed By: #### 2 16373 #### [facility],[address] [place] [address] 20501 Urea nitrogen [Mass/Vol] 14 mg/dL Normal 7 - 18 [facility] Comment on above: Performed By: #### 2 10660 #### [facility],[address] [place] [address] 85810 HEMOGLOBIN A1C (POM)on 06-03 Glucose [Mass/Vol] 111.2 mg/dL High 0.0 - 0.0 [facility] Comment on above: Result Comment: BLDo HEMOGLOBIN A1C REFERENCE RANGESBLDo Suggested Diagnosis HbA1c(%) HbA1C (mmol/mol Diabetic >/=6.5 >/=48 Prediabetes 5.7 - 6.4 39 - 47 Normal <5.7 <39 Performed By: #### 2 56691 #### [address] [address] HbA1c (Bld) [Mass fraction] 5.5 % Normal 0.0 - 6.5 [facility] Comment on above: Performed By: #### 2 86549 #### [address] [address] CNOVon 05-22-2024 CNOV Office Visit (UCWSTR ) HOLLY SANCHEZ ([id number]) 1950 F Date Time Provider Department 05/22/24 7:00 PM [facility] During your visit today, we recorded the following information about you: Temperature Pulse Respiration Blood pressure 98.6 degrees 76/minute 18/minute 169/79 Weight 56.2 kg Ivette Elizabeth APRN.TRAFFIC OPERATIONS MANAGER 05/22/2024 7:09 PM Signed This note was created using NoteWriter. Subjective Holly Sanchez is a 74 year old female. 74 year old female with PMH HTN, acid reflux, and hyperlipidemia presents for illness Acute onset 4 days ago Started with a sore throat +cough Non productive +diarrhea Denies N/V Denies body aches Denies CP Denies dyspnea Has used organic oregano spray Denies tobacco usage Nyquil Endorses her son was being treated with pneumonia The history is provided by the patient. No gang supervisor was used. Cough This is a new problem. The current episode started more than 2 days ago. The problem occurs constantly. The problem has not changed since onset.The cough is Non-productive. There has been no fever. Associated symptoms include headaches, rhinorrhea and wheezing. Pertinent negatives include no chest pain, no chills, no sweats, no weight loss, no ear congestion, no ear pain, no sore throat, no myalgias, no shortness of breath and no eye redness. Treatments tried: nyquil. She is not a smoker. Her past medical history does not include bronchitis, pneumonia, bronchiectasis, COPD, emphysema or asthma. PAST MEDICAL HISTORY Diagnosis Date Abdominal pain, epigastric Acute gastritis without mention of hemorrhage GERD (gastroesophageal reflux disease) PMH - PAST MEDICAL HISTORY OF high choelstrol Unspecified essential hypertension PAST SURGICAL HISTORY Procedure Laterality Date DELIVERY ONLY , low transverse EGD TRANSORAL BIOPSY SINGLE/MULTIPLE 07/26/09 ALLERGIES Accupril [Quinapril Hcl] MEDICATIONS spironolactone (ALDACTONE) 25 mg tablet Take 1 tablet by mouth every afternoon. pravastatin (PRAVACHOL) 20 mg tablet Take 1 tablet by mouth every afternoon. ALPRAZolam (XANAX) 0.5 mg tablet pantoprazole sodium(PROTONIX 40 MG TAB) Take (1) once daily amlodipine besylate(NORVASC 10 MG TAB) Take one(1) tablet daily. doxycycline (VIBRA-TABS) 100 mg tablet Take 1 tablet by mouth two times a day for 7 days. pravastatin (PRAVACHOL) 40 mg tablet (Patient not taking: Reported on 05/22/2024) losartan potassium(COZAAR 50 MG TAB) Take one(1) tablet daily. (Patient not taking: Reported on 05/22/2024) triamterene/hydrochlo rothiazid(DYAZIDE 37.5 MG-25 MG CAP) Take one(1) tablet daily. (Patient not taking: Reported on 05/22/2024) estrogen,con/m-proges t acet(PREMPRO 0.625 MG-2.5 MG TAB) Take one(1) tablet daily. (Patient not taking: Reported on 05/22/2024) aspirin(ECOTRIN LOW STRENGTH 81 MG TAB) Take one(1) tablet daily. (Patient not taking: Reported on 05/22/2024) FAMILY HISTORY Problem Relation Age of Onset Diabetes Father Social History Tobacco Use Smoking status: Never Smokeless tobacco: Never Substance Use Topics Alcohol use: No Drug use: No Review of Systems Constitutional: Positive for fatigue. Negative for chills and weight loss. HENT: Positive for congestion, rhinorrhea, sinus pressure and sinus pain. Negative for ear pain and sore throat. Eyes: Negative for pain, discharge, redness and itching. Respiratory: Positive for cough and wheezing. Negative for shortness of breath. Cardiovascular: Negative for chest pain. Gastrointestinal: Negative for abdominal pain, diarrhea, nausea and vomiting. Musculoskeletal: Negative for arthralgias, back pain and myalgias. Skin: Negative for color change, pallor, rash and wound. Allergic/Immunologic: Negative for environmental allergies, food allergies and immunocompromised state. Neurological: Positive for headaches. Negative for dizziness, seizures, facial asymmetry, light-headedness and numbness. Hematological: Negative for adenopathy. Does not bruise/bleed easily. Psychiatric/Behaviora l: Negative for agitation and behavioral problems. Objective BP 169/79 Pulse 76 Temp 37 ?C (98.6 ?F) Resp 18 Wt 56.2 kg (123 lb 14.4 oz) SpO2 98% Physical Exam Vitals and nursing note reviewed. Constitutional: General: She is not in acute distress. Appearance: Normal appearance. She is normal weight. She is not ill-appearing, toxic-appearing or diaphoretic. HENT: Head: Normocephalic and atraumatic. Right Ear: Ear canal and external ear normal. Left Ear: Ear canal and external ear normal. Nose: Congestion present. No rhinorrhea. Mouth/Throat: Mouth: Mucous membranes are moist. Pharynx: Posterior oropharyngeal erythema present. No oropharyngeal exudate. Eyes: General: Right eye: No discharge. Left eye: No discharge. Extraocular Movements: Ext (more content not included)... [facility] Re[facility]ution OTon 05-19-2024 Re-Evalution OT [facility] [place] [address] [facility] [place] [address] / REEVALUATION / MEDICARE RECERTIFICATION OCCUPATIONAL THERAPY MR#: [id number] Acct: [id number] Name: HOLLY SANCHEZ Rep #: [id number] : 1950 74 From: Annalee Bartlett Referring Dr.: ZEINAB Casas Status: REG RCR Insurance: MEDICARE PART A B Eval Date: NA SR SUPPLEMENT INS Re-Evaluation Intro: ZEINAB Casas, It has been my pleasure to treat HOLLY SANCHEZ over the last 7 visits for OA cmc. Please see the progress note below for an update on the occupational therapy plan of care! Subjective Subjective: pt arrives 9 weeks 4 days out from surgery doing well feels a little sore Objective Objective/Function: pt is doing well complains of soreness in L thumb region and wrist region at times. 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# L hand lateral pinch 1# L hand tripod pinch 1# Plan Plan Frequency: 1-2x /Week Duration: 2 Months Plan: progress in ROM per progression of healing and spittle protocal Goals Goals Patient Goals: Regain Mobility, Regain Strength, Decrease Pain and Use Hand/Wrist/Arm Normally Again Goal:100% adherence to protocol: Yes Goal:Daily scar massage when approriate: Yes Goal:ROM equal to unaffected hand: Yes Goal:Imaging Services Director/Pinch strength at least 75% of unaffected hand: Yes Goal:No pain with affected hand use: Yes Goal:Full use of affected hand in daily activities including work: Yes Goal:Decrease scar hypersensitivity: Yes Other Goal: orthosis use: pt will demo IND donning and doffing of orthosis by end of 1st session Anticipated Interventions Anticipated Interventions Anticipated Interventions: A/AAROM/PROM, Strengthening, Scar Care, Triggerpoint Release, Desensitization, Orthoses, Joint Protection/Energy Conservation, Ergonomic Education, Education re assistive Equipment, Education re Diagnosis and Home Program Re-Evaluation Ending Re-evaluation ending: Please do not hesitate to contact me at [phone] by phone or if you have questions or concerns regarding this new plan of care! Sincerely, Annalee Bartlett 05/19/24 0744 CC: Dr. Dari Velásquez MD; ZEINAB Casas CK Signed For Medicare only, by signing this I certify the plan of care. Physicians Signature Date Normal [facility] OT General Evaluationon 03-22 OT General Evaluation [facility] [address] [facility] [place] [address] / REHABILITATION SERVICES INITIAL EVALUATION MR#: [id number] Acct: [id number] Name: HOLLY SANCHEZ Rep #: [id number] : 1950 74 From: Ana CAMPOS/Miroslava, CHT Referring Dr.: ZEINAB Casas Status: REG RCR Insurance: MEDICARE PART A B Eval Date: SR SUPPLEMENT INS Patient's Visit Information Visit Information Visit Information: HOLLY SANCHEZ is a 74 year old F, referred to Occupational Therapy by ZEINAB Casas, with a diagnosis of OA cmc. Date of Evaluation: 04/09/24 Occupational Therapist: BETH Meza/Miroslava, CHT Subjective Subjective: This 74 year old female was seen for OT eval with dx of left CMC OA. pt states she had multiple cortisone shot and last few was not helpful. pt decided to have sx. pt is right handed. pt had sx on 2023. pt lives alone. ADLs Comments: pt use of one hand at this time with all ADLs and IADLs. Pain left hand: Current Pain Intensity: 2 Pain Intensity Range: 4 ROM Wrist: right 55/50 left 30/30 CMC: right 20 left NT MP: right 60 left 10 IP: right 50 left 15 Strength Imaging Services Director: right 30# left NT Strength Comments: will test at later date Quick DASH-Disab of Arm,Shoulder Hand Quick DASH Score: 59.0900 Goals Goal:100% adherence to protocol: Yes Comment: cmc arthroplasty guidelines Goal:Daily scar massage when approriate: Yes Goal:ROM equal to unaffected hand: Yes Goal:Imaging Services Director/Pinch strength at least 75% of unaffected hand: Yes Goal:No pain with affected hand use: Yes Goal:Full use of affected hand in daily activities including work: Yes Goal:Decrease scar hypersensitivity: Yes Other Goal: orthosis use: pt will demo IND donning and doffing of orthosis by end of 1st session Rehabilitation General Assessment: pt arrives 3 weeks and 6 days s/p from a left CMC arthroplasty. Pt arrives in need of custom orthosis to provide support and protection while newly repaired structures are healing. PT demo need for skilled OT services 1-2 x week for 8 weeks. Today therapist shar. custom orthosis, ed. in wrist short arch wrist ROM, tendon glide and IP ROM- therapist ed. pt to avoid any thumb hyper-ext of MPJ. pt demo understanding. therapist ed. pt on orthosis precautions and agreed to return to clinic for adj. pt demo understanding and agree to POC. Rehabilitation Potential: Excellent Anticipated Interventions Anticipated Interventions: A/AAROM/PROM, Strengthening, Scar Care, Triggerpoint Release, Desensitization, Orthoses, Joint Protection/Energy Conservation, Ergonomic Education, Education re assistive Equipment, Education re Diagnosis and Home Program Visit Plan Frequency: 1-2x /Week Duration: 2 Months TEXT: Thank you for the opportunity to evaluate your patient. For Medicare and Medicare HMO plans, please review the plan of care and approve it. It will need to be FAXED BACK to us at [phone] for Medicare purposes. Please let me know if there are questions or concerns regarding this plan of care. Physician Signature: Date : 04/09/24 1630 CC: Dr. Dari Velásquez MD; ZEINAB Casas MK Signed For Medicare only, by signing this I certify the plan of care. Physicians Signature Date Normal [facility] 03-26-2024 Lower GI hemoglobin IA Ql (Stl) Negative Normal Negative [facility] Comment on above: Performed By: #### F IT #### [facility] [address] [place] [address] BMP with eGFRon 02-17-2024 AGE 73 years Normal [facility] Comment on above: Performed By: #### 2 [id number] #### [facility],[address] [place] [address] 34241 Anion gap [Moles/Vol] 17 mmol/L Normal 10 - 20 [facility] Comment on above: Performed By: #### 2 69362 #### [facility],[address] [place] [address] 59648 BMP with eGFR Normal [facility] Comment on above: Result Comment: BASI C METABOLIC PANEL Performed By: #### 2 09204 #### [facility],[address] [place] [address] 92973 Calcium [Mass/Vol] 10.2 mg/dL High 8.5 - 10.1 [facility] Comment on above: Performed By: #### 2 95443 #### [facility],[address] [place] [address] 50522 Chloride [Moles/Vol] 105 mmol/L Normal 98 - 107 [facility] Comment on above: Performed By: #### 2 99139 #### [facility],[address] [place] [address] 26159 CO2 [Moles/Vol] 26.2 mmol/L Normal 21.0 - 32.0 [facility] Comment on above: Performed By: #### 2 92200 #### [facility],[address] [place] [address] 11527 Creatinine [Mass/Vol] 0.97 mg/dL Normal 0.55 - 1.02 [facility] Comment on above: Performed By: #### 2 95573 #### [facility],[address] [place] [address] 04039 eGFR 56 ML/MINUTE Low 60 - 999 [facility] Comment on above: Performed By: #### 2 70942 #### [facility],[address] [place] [address] 25294 GFR/1.73 sq M.predicted among non-blacks MDRD (S/P/Bld) [Vol rate/Area] mL/min/{1.73_m2} Normal 60 - 999 [facility] Comment on above: Result Comment: ACCO RDING TO THE NATIONAL KIDNEY DISEASE EDUCATION PROGRAM(NKDE), A NORMAL eGFR IS A VALUE GREATER THAN OR EQUAL TO 60 ML/MIN/1.73 SQ METERS. CHRONIC KIDNEY DISEASE: <60mL/MIN/1.73 SQ METERS KIDNEY FAILURE: <15mL/MIN/1.73 SQ METERS THIS TEST SHOULD ONLY BE USED FOR PATIENTS 18 YEARS OF AGE AND OLDER. Performed By: #### 2 25883 #### [facility],[address] [place] [address] 58854 Glucose [Mass/Vol] 90 mg/dL Normal 74 - 106 [facility] Comment on above: Performed By: #### 2 85222 #### [facility],[address] [place] [address] 53027 Potassium [Moles/Vol] 3.7 mmol/L Normal 3.5 - 5.1 [facility] Comment on above: Performed By: #### 2 94359 #### [facility],[address] [place] [address] 59561 Sodium [Moles/Vol] 144 mmol/L Normal 136 - 145 [facility] Comment on above: Performed By: #### 2 74063 #### [facility],[address] [place] [address] 07028 Urea nitrogen [Mass/Vol] 21 mg/dL High 7 - 18 [facility] Comment on above: Performed By: #### 2 93956 #### [facility],[address] [place] [address] 14864 C-REACTIVE PROTEINon 02-16- 024 CRP [Mass/Vol] mg/L Normal 0.00 - 0.90 [facility] Comment on above: Performed By: #### 2 68793 #### [facility],[address] [place] [address] 46461 CBC + DIFFon 02-17-2024 Baso # 0.03 x10EE3/UL Normal 0.00 - 0.10 [facility] Comment on above: Performed By: #### 2 87332 #### [facility],[address] [place] [address] 80206 Basophils/100 WBC (Bld) 0.4 % Normal 0.0 - 2.0 [facility] Comment on above: Performed By: #### 2 89268 #### [facility],[address] [place] [address] CBC + DIFF Normal [facility] Comment on above: Result Comment: CBC- COMPLETE BLOOD COUNT Performed By: #### 2 08950 #### [facility],[address] [place] [address] EO # 0.21 x10EE3/UL Normal 0.00 - 0.50 [facility] Comment on above: Performed By: #### 2 26717 #### [facility],[address] [place] [address] 53767 Eosinophils/100 WBC (Bld) 3.1 % Normal 0.0 - 7.0 [facility] Comment on above: Performed By: #### 2 23577 #### [facility],[address] [place] [address] 44084 Erythrocyte distribution width (RBC) [Ratio] 14.6 % Normal 12.0 - 15.6 [facility] Comment on above: Performed By: #### 2 12159 #### [facility],[address] [place] [address] 63968 Hematocrit (Bld) [Volume fraction] 40.8 % Normal 34.0 - 46.0 [facility] Comment on above: Performed By: #### 2 87418 #### [facility],[address] [place] [address] 10809 Hemoglobin (Bld) [Mass/Vol] 13.5 g/dL Normal 12.0 - 16.0 [facility] Comment on above: Performed By: #### 2 25884 #### [facility],[address] [place] [address] Lymph # 2.65 x10EE3/UL Normal 0.80 - 2.80 [facility] Comment on above: Performed By: #### 2 09998 #### [facility],[address] [place] [address] Lymphocytes/100 WBC (Bld) 38.9 % Normal 20.0 - 45.0 [facility] Comment on above: Performed By: #### 2 55090 #### [facility],[address] [place] [address] MANUAL DIFF N/A Normal [facility] Comment on above: Performed By: #### 2 72922 #### [facility],[address] [place] [address] MCH (RBC) [Entitic mass] 27 pg Normal 27 - 33 [facility] Comment on above: Performed By: #### 2 28664 #### [place] [address] MCHC 33 X10 3 Normal 32 - 36 [facility] Comment on above: Performed By: #### 2 91558 #### [facility],[address] [place] [address] MCV (RBC) [Entitic vol] 80 fL Normal 80 - 99 [facility] Comment on above: Performed By: #### 2 48731 #### [facility],[address] [place] [address] [place] # 0.53 x10EE3/UL Normal 0.20 - 1.00 [facility] Comment on above: Performed By: #### 2 08807 #### [facility],[address] [place] [address] MONOS % 7.8 % Normal 0.0 - 10.0 [facility] Comment on above: Performed By: #### 2 93946 #### [facility],[address] [place] [address] 56205 Morphology Viktor (Bld) [Interp] N/A Normal [facility] Comment on above: Performed By: #### 2 16791 #### [facility],[address] [place] [address] 37171 Neut # 3.38 x10EE3/UL Normal 1.50 - 7.10 [facility] Comment on above: Performed By: #### 2 11868 #### [facility],[address] [place] [address] Neutrophils/100 WBC (Bld) 49.8 % Normal 46.0 - 76.0 [facility] Comment on above: Performed By: #### 2 00539 #### [facility],[address] [place] [address] PLATELET 272 x10EE3/UL Normal 150 - 450 [facility] Comment on above: Performed By: #### 2 29298 #### [facility],[address] [place] [address] Platelet mean volume (Bld) [Entitic vol] 7.9 fL Normal 6.6 - 10.5 [facility] Comment on above: Result Comment: AUTO MATED DIFFERENTIAL Performed By: #### 2 65440 #### [facility],[address] [place] [address] 02225 RBC 5.09 x 10EE6/UL Normal 4.10 - 5.30 [facility] Comment on above: Performed By: #### 2 28667 #### [facility],[address] [place] [address] 40329 WBC 6.8 x 10EE3/UL Normal 4.5 - 10.8 [facility] Comment on above: Performed By: #### 2 99521 #### [facility],[address] [place], [place] [address] SEDRATEon 10-28-2024 SEDRATE 15 mm/hr Normal 0 - 30 [facility] Comment on above: Performed By: #### 2 98929 #### [facility],[address] [place] [address] 93285 FITon 02-26-2023 Lower GI hemoglobin IA Ql (Stl) Negative Normal Negative [facility] Comment on above: Performed By: #### F IT #### [facility] [address] [place] [address] Hemoglobin A1con 03-28-2021 Glucose [Mass/Vol] 103 mg/dL Normal [facility] Comment on above: Performed By: #### H BA1C #### [facility] [address] [place], [place] [id number] HbA1c (Bld) [Mass fraction] 5.2 % Normal 4.3-5.6 [facility] Comment on above: Performed By: #### H BA1C #### [facility] [address] [place], [place] [address] Vital Signs Date Time Vital Sign Value Performing Clinician Inga castellanos 05-22-2024 18:54-0500 Body temperature 98.6 [degF] Ivette Elizabeth MAINFRAME ANALYST.TRAFFIC OPERATIONS MANAGER Work Phone: [facility] 05-22-2024 18:54-0500 Body weight 56.2 kg Ivette Elizabeth MAINFRAME ANALYST.TRAFFIC OPERATIONS MANAGER Work Phone: [facility] 05-22-2024 18:54-0500 Diastolic blood pressure 79 mm[Hg] Ivette Elizabeth MAINFRAME ANALYST.TRAFFIC OPERATIONS MANAGER Work Phone: [facility] 05-22-2024 18:54-0500 Heart rate 76 /min Ivette Elizabeth MAINFRAME ANALYST.TRAFFIC OPERATIONS MANAGER Work Phone: [facility] 05-22-2024 18:54-0500 Respiratory rate 18 /min Ivette Elizabeth MAINFRAME ANALYST.TRAFFIC OPERATIONS MANAGER Work Phone: [facility] 05-22-2024 18:54-0500 SaO2% (BldA) [Mass fraction] 98 % Ivette Elizabeth APRN.CNP Work Phone: [facility] 05-22-2024 18:54-0500 Systolic blood pressure 169 mm[Hg] Ivette Elizabeth APRN.CNP Work Phone: [facility] Encounters Encounter Date Encounter Type Care Provider Facility Start: 01-06-2025 End: 01-06-2025 ambulatory RIMA GOULD [facility] Start: 09-03-2024 End: 09-03-2024 ambulatory DARI ALDANA [place] Start: 07-28-2024 End: 07-28-2024 ambulatory DARI ALDANA [place] Start: 06-15-2024 End: 06-15-2024 ambulatory DARI ALDANA [place] Start: 06-03-2024 End: 06-03-2024 ambulatory DARI ALDANA [place] Start: 06-02-2024 End: 06-02-2024 ambulatory Evy Devlin Facility:[facility] Start: 06-02-2024 End: 06-02-2024 Discharged Recurring Evy Devlin PA -Occupational Thera py Work Phone: Start: 05-22-2024 End: 05-22-2024 ambulatory DARI VELÁSQUEZ Facility:[facility] Start: 05-22-2024 End: 05-22-2024 Patient encounter procedure Ivette Elizabeth APRN.TRAFFIC OPERATIONS MANAGER Work Phone: [facility] Comment on above: Acute cough (Primary Dx); Exposure to pneumonia Start: 03-13-2024 End: 03-17-[address] DARI VELÁSQUEZ MD Facility:A Start: 02-17-2024 End: 02-17-2024 ambulatory RALPH TAYLOR [facility] Start: 02-20-2023 End: 02-25-[address] DARI VELÁSQUEZ MD Facility:[facility] Plan of Treatment Date Care Activity Detail Author Start: 05-29-2033 Urine microalbumin profile DTa P,Tdap,Td Vaccine (2 - Td or Tdap) [facility] Start: 04-06-2025 Diabetes Screening Diabetes Screenin g [facility] Start: 2025 RSV Vaccine (1 - 1-d ose 75+ series) RSV Vaccine (1 - 1-dose 75+ series) [facility] Start: 04-22-2024 Advance Directive Discussion Advance Directive Discussion [facility] Start: 12-22-2023 Covid-19 Vaccine ( season) Covid-19 Vaccine ( season) [facility] Start: 12-22-2023 Influenza vaccination Influenza Vacc ine (#1) [facility] Start: 2015 Screening for osteoporosis Bone Dens ity Screening [facility] Start: 02-29-2000 Shingrix Vaccine (1 of 2) Cook grix Vaccine (1 of 2) [facility] Start: 1995 Lipid panel Lipid Screening [facility] Start: 1995 Screening for malign ant neoplasm of colon [facility] Start: 1990 Screening for malign ant neoplasm of breast Mammogram Screening [facility] Start: 02-29-1968 Anxiety Screening Anxiety Screening [facility] Start: 02-29-1968 Depression Screening Depression Scre ening [facility] Start: 02-29-1968 Hepatitis C screening Hepatitis C [facility] Immunizations Immunization Date Immunization Notes Care Provider Pastor dobson 01-31-2023 influenza virus vacc ine, unspecified formulation Ivette Elizabeth MAINFRAME ANALYST.TRAFFIC OPERATIONS MANAGER Work Phone: [facility] Payers Date Payer Category Payer Self-pay [id number] 2023 Private Health Insurance CLI [id number] 2015 Medicare MEDICARE MEDICAR E A AND B [id number] 2015-Present [phone] [place] [address] Medicare [id number] 2000 Medicare [id number] 1950 Unknown [id number]. [id number] 1950 Unknown [id number] [id number]. 2.627 1950 Unknown [id number] [id number]. 2.651 1950 Unknown [id number] [id number]. 2.651 1950 Unknown [id number] [id number]. 2.651 1950 Unknown [id number] [id number]. 2.651 1950 Unknown [id number] [id number]. 2.651 1950 Unknown [id number] [id number]. 2.651 Private Health Insurance [id number] Unknown [id number] [id number]. 2.462 Social History Date Type Detail Facility Tobacco smoking stat us [facility] Unknown if ever smoked [facility] Work Phone: Start: 1950 Sex Assigned At Female [facility] Start: 04-10-2021 End: 05-22-2024 Tobacco smoking status CAIS Never smoked tobacco [facility] Start: 05-22-2024 Tobacco use and exposure Smokeless tobacco non-user [facility] Start: 05-22-2024 Alcoholic beverage intake Current non-drinker of alcohol (finding) [facility] Start: 05-22-2024 History of Social function [facility] Start: 05-22-2024 Tobacco use panel [facility] Start: 1950 Sex assigned at Not on file [facility] Start: 07-13-2024 Sex Female (finding) [facility] Progress note 05-22-2024 Note Date & Type Note Facility 05-22-2024 Note HNO ID: [id number] Author: IVETTE ELIZABETH APRN.TRAFFIC OPERATIONS MANAGER Service: ? Author Type: Nurse Practitioner Type: Progress Notes Filed: 05/22/2024 19:09 Note Text: This note was created using NoteWriter. Subjective Holly Sanchez is a 74 year old female. 74 year old female with PMH HTN, acid reflux, and hyperlipidemia presents for illness Acute onset 4 days ago Started with a sore throat +cough Non productive +diarrhea Denies N/V Denies body aches Denies CP Denies dyspnea Has used organic oregano spray Denies tobacco usage Nyquil Endorses her son was being treated with pneumonia The history is provided by the patient. No gang supervisor was used. Cough This is a new problem. The current episode started more than 2 days ago. The problem occurs constantly. The problem has not changed since onset.The cough is Non-productive. There has been no fever. Associated symptoms include headaches, rhinorrhea and wheezing. Pertinent negatives include no chest pain, no chills, no sweats, no weight loss, no ear congestion, no ear pain, no sore throat, no myalgias, no shortness of breath and no eye redness. Treatments tried: nyquil. She is not a smoker. Her past medical history does not include bronchitis, pneumonia, bronchiectasis, COPD, emphysema or asthma. PAST MEDICAL HISTORY Diagnosis Date Abdominal pain, epigastric Acute gastritis without mention of hemorrhage GERD (gastroesophageal reflux disease) PMH - PAST MEDICAL HISTORY OF high choelstrol Unspecified essential hypertension PAST SURGICAL HISTORY Procedure Laterality Date DELIVERY ONLY , low transverse EGD TRANSORAL BIOPSY SINGLE/MULTIPLE 07/26/09 ALLERGIES Accupril [Quinapril Hcl] MEDICATIONS spironolactone (ALDACTONE) 25 mg tablet Take 1 tablet by mouth every afternoon. pravastatin (PRAVACHOL) 20 mg tablet Take 1 tablet by mouth every afternoon. ALPRAZolam (XANAX) 0.5 mg tablet pantoprazole sodium(PROTONIX 40 MG TAB) Take (1) once daily amlodipine besylate(NORVASC 10 MG TAB) Take one(1) tablet daily. doxycycline (VIBRA-TABS) 100 mg tablet Take 1 tablet by mouth two times a day for 7 days. pravastatin (PRAVACHOL) 40 mg tablet (Patient not taking: Reported on 05/22/2024) losartan potassium(COZAAR 50 MG TAB) Take one(1) tablet daily. (Patient not taking: Reported on 05/22/2024) triamterene/hydrochlorothiazid(DYAZIDE 37.5 MG-25 MG CAP) Take one(1) tablet daily. (Patient not taking: Reported on 05/22/2024) estrogen,con/m-progest acet(PREMPRO 0.625 MG-2.5 MG TAB) Take one(1) tablet daily. (Patient not taking: Reported on 05/22/2024) aspirin(ECOTRIN LOW STRENGTH 81 MG TAB) Take one(1) tablet daily. (Patient not taking: Reported on 05/22/2024) FAMILY HISTORY Problem Relation Age of Onset Diabetes Father Social History Tobacco Use Smoking status: Never Smokeless tobacco: Never Substance Use Topics Alcohol use: No Drug use: No Review of Systems Constitutional: Positive for fatigue. Negative for chills and weight loss. HENT: Positive for congestion, rhinorrhea, sinus pressure and sinus pain. Negative for ear pain and sore throat. Eyes: Negative for pain, discharge, redness and itching. Respiratory: Positive for cough and wheezing. Negative for shortness of breath. Cardiovascular: Negative for chest pain. Gastrointestinal: Negative for abdominal pain, diarrhea, nausea and vomiting. Musculoskeletal: Negative for arthralgias, back pain and myalgias. Skin: Negative for color change, pallor, rash and wound. Allergic/Immunologic: Negative for environmental allergies, food allergies and immunocompromised state. Neurological: Positive for headaches. Negative for dizziness, seizures, facial asymmetry, light-headedness and numbness. Hematological: Negative for adenopathy. Does not bruise/bleed easily. Psychiatric/Behavioral: Negative for agitation and behavioral problems. Objective BP 169/79 Pulse 76 Temp 37 ?C (98.6 ?F) Resp 18 Wt 56.2 kg (123 lb 14.4 oz) SpO2 98% Physical Exam Vitals and nursing note reviewed. Constitutional: General: She is not in acute distress. Appearance: Normal appearance. She is normal weight. She is not ill-appearing, toxic-appearing or diaphoretic. HENT: Head: Normocephalic and atraumatic. Right Ear: Ear canal and external ear normal. Left Ear: Ear canal and external ear normal. Nose: Congestion present. No rhinorrhea. Mouth/Throat: Mouth: Mucous membranes are moist. Pharynx: Posterior oropharyngeal erythema present. No oropharyngeal exudate. Eyes: General: Right eye: No discharge. Left eye: No discharge. Extraocular Movements: Extraocular movements intact. Conjunctiva/sclera: Conjunctivae normal. Pupils: Pupils are equal, round, and reactive to light. Cardiovascular: Rate and Rhythm: Normal rate and regular rhythm. Pulses: Normal pulses. Heart sounds: Normal heart sounds. No murmur heard. No friction rub. (more content not included)... [facility] of Present illness Narrative 05-22-2024 Ivette Elizabeth APRN.[facility] - 05/22/2024 6:57 PM EST Note Date & Type Note Facility 05-22-2024 History of Presen t illness Narrative This note was created using [employer]. Subjective Holly Sanchez is a 74 year old female. 74 year old female with PMH HTN, acid reflux, and hyperlipidemia presents for illness Acute onset 4 days ago Started with a sore throat +cough Non productive +diarrhea Denies N/V Denies body aches Denies CP Denies dyspnea Has used organic oregano spray Denies tobacco usage Nyquil Endorses her son was being treated with pneumonia The history is provided by the patient. No gang supervisor was used. Cough This is a new problem. The current episode started more than 2 days ago. The problem occurs constantly. The problem has not changed since onset.The cough is Non-productive. There has been no fever. Associated symptoms include headaches, rhinorrhea and wheezing. Pertinent negatives include no chest pain, no chills, no sweats, no weight loss, no ear congestion, no ear pain, no sore throat, no myalgias, no shortness of breath and no eye redness. Treatments tried: nyquil. She is not a smoker. Her past medical history does not include bronchitis, pneumonia, bronchiectasis, COPD, emphysema or asthma. PAST MEDICAL HISTORY Diagnosis Date Abdominal pain, epigastric Acute gastritis without mention of hemorrhage GERD (gastroesophageal reflux disease) PMH - PAST MEDICAL HISTORY OF high choelstrol Unspecified essential hypertension PAST SURGICAL HISTORY Procedure Laterality Date DELIVERY ONLY , low transverse EGD TRANSORAL BIOPSY SINGLE/MULTIPLE 07/26/09 ALLERGIES Accupril [Quinapril Hcl] MEDICATIONS spironolactone (ALDACTONE) 25 mg tablet Take 1 tablet by mouth every afternoon. pravastatin (PRAVACHOL) 20 mg tablet Take 1 tablet by mouth every afternoon. ALPRAZolam (XANAX) 0.5 mg tablet pantoprazole sodium(PROTONIX 40 MG TAB) Take (1) once daily amlodipine besylate(NORVASC 10 MG TAB) Take one(1) tablet daily. doxycycline (VIBRA-TABS) 100 mg tablet Take 1 tablet by mouth two times a day for 7 days. pravastatin (PRAVACHOL) 40 mg tablet (Patient not taking: Reported on 05/22/2024) losartan potassium(COZAAR 50 MG TAB) Take one(1) tablet daily. (Patient not taking: Reported on 05/22/2024) triamterene/hydrochlorothiazid(DYAZIDE 37.5 MG-25 MG CAP) Take one(1) tablet daily. (Patient not taking: Reported on 05/22/2024) estrogen,con/m-progest acet(PREMPRO 0.625 MG-2.5 MG TAB) Take one(1) tablet daily. (Patient not taking: Reported on 05/22/2024) aspirin(ECOTRIN LOW STRENGTH 81 MG TAB) Take one(1) tablet daily. (Patient not taking: Reported on 05/22/2024) FAMILY HISTORY Problem Relation Age of Onset Diabetes Father Social History Tobacco Use Smoking status: Never Smokeless tobacco: Never Substance Use Topics Alcohol use: No Drug use: No Review of Systems Constitutional: Positive for fatigue. Negative for chills and weight loss. HENT: Positive for congestion, rhinorrhea, sinus pressure and sinus pain. Negative for ear pain and sore throat. Eyes: Negative for pain, discharge, redness and itching. Respiratory: Positive for cough and wheezing. Negative for shortness of breath. Cardiovascular: Negative for chest pain. Gastrointestinal: Negative for abdominal pain, diarrhea, nausea and vomiting. Musculoskeletal: Negative for arthralgias, back pain and myalgias. Skin: Negative for color change, pallor, rash and wound. Allergic/Immunologic: Negative for environmental allergies, food allergies and immunocompromised state. Neurological: Positive for headaches. Negative for dizziness, seizures, facial asymmetry, light-headedness and numbness. Hematological: Negative for adenopathy. Does not bruise/bleed easily. Psychiatric/Behavioral: Negative for agitation and behavioral problems. Objective BP 169/79 Pulse 76 Temp 37 C (98.6 F) Resp 18 Wt 56.2 kg (123 lb 14.4 oz) SpO2 98% Physical Exam Vitals and nursing note reviewed. Constitutional: General: She is not in acute distress. Appearance: Normal appearance. She is normal weight. She is not ill-appearing, toxic-appearing or diaphoretic. HENT: Head: Normocephalic and atraumatic. Right Ear: Ear canal and external ear normal. Left Ear: Ear canal and external ear normal. Nose: Congestion present. No rhinorrhea. Mouth/Throat: Mouth: Mucous membranes are moist. Pharynx: Posterior oropharyngeal erythema present. No oropharyngeal exudate. Eyes: General: Right eye: No discharge. Left eye: No discharge. Extraocular Movements: Extraocular movements intact. Conjunctiva/sclera: Conjunctivae normal. Pupils: Pupils are equal, round, and reactive to light. Cardiovascular: Rate and Rhythm: Normal rate and regular rhythm. Pulses: Normal pulses. Heart sounds: Normal heart sounds. No murmur heard. No friction rub. Pulmonary: Effort: Pulmonary effort is normal. No respiratory distress. Breath sounds: Normal breath sounds. No stridor. No wheezing, rhonchi or rales. Chest: Chest wall: No tenderness. Abdominal: General: Abdomen is flat. There is no distension. Palpations: Abdomen is soft. There is no mass. Tenderness: There is no abdominal tenderness. There is no right CVA tenderness, left CVA tenderness, guarding or rebound. Hernia: No hernia is present. Musculoskeletal: General: No swelling, tenderness, deformity or signs of injury. Normal range of motion. Cervical back: Normal range of motion and neck supple. No rigidity. Right lower leg: No edema. Left lower leg: No edema. Lymphadenopathy: Cervical: Cervical adenopathy present. Skin: General: Skin is warm and dry. Coloration: Skin is not jaundiced or pale. Findings: No bruising, erythema, lesion or rash. Neurological: General: No focal deficit present. Mental Status: She is alert and oriented to person, place, and time. Cranial Nerves: No cranial nerve deficit. Sensory: No sensory deficit. Motor: No weakness. Coordination: Coordination normal. Gait: Gait normal. Psychiatric: Mood and Affect: Mood normal. Behavior: Behavior normal. Thought Content: Thought content normal. Judgment: Judgment normal. Assessment and Plan ASSESSMENT/PLAN: 1. Acute cough - ICD9: 786.2, ICD10: R05.1 (primary diagnosis) X 4 days +exposure No xray available at time of presentation Will cover for potential pneumonia 2. Exposure to pneumonia - ICD9: V01.89, ICD10: Z20.89 Son had POSITIVE pneumonia Will cover patient Ivette Elizabeth APRN.TRAFFIC OPERATIONS MANAGER documented in this encounter [facility] Evaluation note Note Date & Type Note Facility Evaluation note No assessment information availa [facility] Work Phone: Evaluation note Note Date & Type Note Facility Evaluation note Diagnosis Acute cough- Primary Exposure to pneumonia Contact with or exposure to other viral diseases documented in this encounter [facility] Reason for referral (narrative) Note Date & Type Note Facility Reason for referral (narrative) No reason for referral information available [facility] Work Phone: Summary Purpose Family History No Family History Records Found Relationship Condition Age at Onset Recorded Date/T silver brother Arthritis Unknown Cardiac disease Unknown Hypertension Unknown High blood cholesterol Unknown Lupus Unknown father Diabetes mellitus Unknown mother Hypertension Unknown sister Hypertension Unknown Advance Directives No Advanced Directives Records Found Advance Directive Response Recorded Date/ Time Advance Directives Yes May 09, 2016 11:44am Chief Complaint and Reason for Visit Chief Complaint Admit Date SPLINT. UNILAT NAYANA OA [facility]. L DUVALL [place]. [id number] June 02, 2024 7:30am Additional Source Comments INFORMATION SOURCE (unrecogn ized section and content) DATE CREATED AUTHOR 03/29/2021 [facility] DATE CREATED AUTHOR AUTHOR'S ORGANIZ ATION 03/18/2023 [facility] ([place] DATE CREATED AUTHOR AUTHOR'S ORGANIZ ATION 04/11/2024 [facility] DATE CREATED AUTHOR AUTHOR'S ORGANIZ ATION 07/13/2024 [facility] DATE CREATED AUTHOR AUTHOR'S ORGANIZ ATION 09/08/2024 [facility] DATE CREATED AUTHOR AUTHOR'S ORGANIZ ATION 01/07/2025 [facility] Goals (unrecognized section and content) Goals may be documented in a n alternate sectionGoals may be documented in an alternate section Source Comments (unrecognize d section and content) In the event this informatio n is protected by the Federal Confidentiality of Alcohol and Drug Abuse Patient Records regulations: The Federal rules restrict any use of the information to criminally investigate or prosecute any alcohol or drug abuse patient.[facility] Reason for Visit (unrecogniz ed section and content) Reason Comments Cough ST, hoarse voice x4 days Care Teams (unrecognized sec tion and content) 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 Dari Velásquez MD Family Provider Active Dr. Dari Velásquez MD Primary Care Provider Active Team Status: Inactive Member Role Status Dates Dr. Dari Velásquez MD Primary Care Provider Active Start: June 02, 2024 End: June 02, 2024 ZEINAB Casas Attending Provider Active Start : June 02, 2024 End: June 02, 2024 ZEINAB Casas Referring Provider Active Start : June 02, 2024 End: June 02, 2024 FOR RECORDS PERTAINING TO PATIENTS WHO ARE OR HAVE BEEN ENROLLED IN A CHEMICAL DEPENDENCY/SUBSTANCEABUSE PROGRAM, SOME INFORMATION MAY BE OMITTED. This clinical summary was aggregated from multiple sources. Caution should be exercised in using it in the provision of clinical care. This summary normalizes information from multiple sources, and as a consequence, information in this document may materially change the coding, format and clinical context of patient data. In addition, data may be omitted in some cases. CLINICAL DECISIONS SHOULD BE BASED ON THE PRIMARY CLINICAL RECORDS. [employer] [facility]. provides no warranty or guarantee of the accuracy or completeness of information in this document.
== END | disposition home or self-care (01) ==
DX: J01.90 Acute sinusitis, unspecified (principal)
CPT/HCPCS: 87070; 87205